=== PATIENT | female | born 1965 | race Hispanic/Latino ===

== ENCOUNTER 2024-05-04 00:09 | Emergency (ER) | payer OTHER, SELFPAY ==
[2024-05-04] MEDS ORDERED: Dicyclomine 20 MG/2 ML VIAL ONE (00:31)
[2024-05-04] MEDS ORDERED: Ketorolac Tromethamine 30 MG (1 mL) VIAL ONE (00:31)
[2024-05-04 00:33] LABS: #Basophils 0.1 thou/uL (0.0-0.2); #Eosinophils 0.1 thou/uL (0.0-0.7); #Lymphocytes 3.6 thou/uL (1.20-3.40); #Monocytes 0.6 thou/uL (0.11-0.59); %Basophils 1.1 % (0.0-1.0); %Eosinophils 1.3 % (0.0-10.0); %Lymphocytes 31.3 % (21.0-51.0); %Monocytes 4.8 % (0.0-10.0); %Neutrophils 61.5 % (42.0-75.0); Hematocrit 49.5 % (36.0-47.0); Hemoglobin 16.1 g/dL (12.0-16.0); Mean Corpuscular HGB CONC 32.5 g/dL (32.0-36.0); Mean Corpuscular Hemoglobin 28.4 pg (27.0-31.0); Mean Corpuscular Volume 87.4 fl (78.0-98.0); Platelet Count 304 10x3/uL (130-400); RBC Distribution Width 10.4 % (11.5-14.5); Red Blood Cell (RBC) Count 5.66 mill/uL (4.20-5.40); White Blood Cell (WBC) Count 11.4 10x3/uL (4.8-10.8)
[2024-05-04 00:47] LABS: ALT (SGPT) 23 U/L (8-55); AST (SGOT) 17 U/L (5-34); Alkaline Phosphatase 119 U/L (40-110); Anion Gap 19 mmol/L (10-20); BUN (Urea Nitrogen) 14 mg/dL (9.8-20.1); Calc. Creatinine Clearance 0 mL/min (70-130); Carbon Dioxide 21 mmol/L (22-29); Chloride 99 mmol/L (98-107); Estimated GFR 76; Globulin 3.8 g/dL (2.4-3.5); Lipase 32 U/L (8-78); Potassium 3.4 mmol/L (3.5-5.1); Protein, Total 7.8 g/dL (6.0-8.3); Sodium 136 mmol/L (136-145)
[2024-05-04] MEDS ORDERED: Ondansetron PF 4 MG/2 ML Vial ONE (01:00)
[2024-05-04 01:10] LABS: Critical Call Chemistry NUR.LC5@1105; Glucose 409 mg/dL (70-105)
[2024-05-04] MEDS ORDERED: Insulin Regular 300 UNITS/3 ML VIAL ONE (01:14)
[2024-05-04] MEDS ORDERED: Iopamidol 370 76% 100 ML VIAL ONE (13:28)
== END 2024-05-04 04:27 | disposition home or self-care (01) ==
LOC: BURERS 00:09
DX: R10.84 Generalized abdominal pain (principal); R11.2 Nausea with vomiting, unspecified; I10 Essential (primary) hypertension; E11.42 Type 2 diabetes mellitus with diabetic polyneuropathy; Z55.6 Problems related to health literacy
CPT/HCPCS: 74177; 80053; 83690; 85025; 96372; 96374; 96375; J1815; J1885; J2405; Q9967